=== PATIENT | male | born 1960 | race Caucasian/White ===

== ENCOUNTER 2021-06-23 14:13 | Outpatient (CLI) | payer BC ==
[2021-06-23 23:08] LABS: SARS-CoV-2 PCR by NAA Not Detected (NotDetected)
== END 2021-06-23 14:14 | disposition home or self-care (01) ==
LOC: CSHLAB 14:13
PROVIDERS: ATTEND Surgery
DX: Z01.812 Encounter for preprocedural laboratory examination (principal); Z20.822 Contact with and (suspected) exposure to COVID-19; C44.42 Squamous cell carcinoma of skin of scalp and neck
CPT/HCPCS: U0003; U0005

== ENCOUNTER 2021-06-25 05:49 | Day surgery (SDC) | payer BC ==
[2021-06-24 09:47] VITALS: BMI 27.6
[2021-06-25] MEDS ORDERED: Bupivacaine 0.25% HCL 30 ML VIAL ONE (06:37)
[2021-06-25] MEDS ORDERED: EPINEPHrine 1 MG/ML AMP ONE (06:37)
[2021-06-25] MEDS ORDERED: Lidocaine 1% MPF 2 ML VIAL ONE (06:54)
[2021-06-25] MEDS ORDERED: Lidocaine 1% PF 5 ML VIAL ONE (07:15)
[2021-06-25] MEDS ORDERED: Fentanyl 100 MCG/2 ML VIAL ONE (07:15)
[2021-06-25] MEDS ORDERED: PROPOFOL 60 ML ONE (07:15)
[2021-06-25] MEDS ORDERED: Midazolam HCl 2 mg/2 ml Vial ONE (07:15)
[2021-06-25] MEDS ORDERED: ceFAZolin 2 GM/Dextrose 50 ML IVPB ONE (07:20)
[2021-06-25] MEDS ORDERED: Ondansetron PF 4 MG/2 ML Vial ONE (07:56)
[2021-06-25] MEDS ORDERED: ePHEDrine Sulfate 50 MG/10 ML VIAL ONE (08:18)
[2021-06-25] MEDS ORDERED: Acetaminophen 325 MG TAB PO PRN (08:24)
[2021-06-25] MEDS ORDERED: HYDROcodone/Acetaminophen 5/325 mg Tablet PO PRN (08:24)
== END 2021-06-25 09:45 | disposition home or self-care (01) ==
LOC: CSHSDC 05:49
PROVIDERS: ATTEND Surgery
PROC: 05HM33Z Insertion of Infusion Device into Right Internal Jugular Vein, Percutaneous Approach (ICD-10-PCS; principal; 2021-06-25)
DX: C10.9 Malignant neoplasm of oropharynx, unspecified (principal); Z79.899 Other long term (current) drug therapy; G40.909 Epilepsy, unspecified, not intractable, without status epilepticus; Z87.891 Personal history of nicotine dependence
CPT/HCPCS: C1788; J0171; J0690; J1642; J2250; J2405; J2704; J3010; S0020

== ENCOUNTER 2024-04-10 11:39 | Emergency (ER) | payer BC ==
[~2024-04-10 11:39] MED LIST: Iopamidol 300 61% 100 ML VIAL FS ONE
[2024-04-10] MEDS ORDERED: Morphine 4 MG/ML VIAL ONE (12:29)
[2024-04-10] MEDS ORDERED: Ondansetron PF 4 MG/2 ML Vial ONE (12:30)
[2024-04-10 12:51] LABS: #Basophils 0.01 10x3/uL (0.0-0.2); #Eosinophils 0.16 10x3/uL (0.0-0.5); #Monocytes 0.74 10x3/uL (0.0-1.1); #Neutrophils 4.76 10x3/uL (1.5-8.4); %Basophils 0.2 % (0.0-2.0); %Eosinophils 2.5 % (0.0-6.0); %Lymphocytes 12.2 % (18.0-47.0); %Monocytes 11.4 % (0.0-10.0); %Neutrophils 73.2 % (40.0-75.0); Hematocrit 37.8 % (38.8-50.0); Hemoglobin 12.5 g/dL (13.5-17.5); Mean Corpuscular HGB CONC 33.1 g/dL (32.0-36.0); Mean Corpuscular Hemoglobin 33.2 pg (27.0-33.0); Mean Corpuscular Volume 100.3 fL (81.2-95.1); Mean Platelet Volume 9.1 fL (7.4-10.4); Platelet Count 246 10x3/uL (150-450); RBC Distribution Width 13.8 % (11.5-14.5); Red Blood Cell (RBC) Count 3.77 10x6/uL (4.32-5.72); White Blood Cell (WBC) Count 6.5 10x3/uL (3.5-10.5)
[2024-04-10 13:02] LABS: ALT (SGPT) 25 U/L (8-55); AST (SGOT) 27 U/L (5-34); Albumin 3.2 g/dL (3.4-4.8); Alkaline Phosphatase 55 U/L (40-110); Anion Gap 11 mmol/L (10-20); BUN (Urea Nitrogen) 27 mg/dL (8.4-25.7); Bilirubin, Total 0.2 mg/dL (0.2-1.2); Calc. Creatinine Clearance 0 mL/min (70-130); Calcium 9.3 mg/dL (7.8-10.44); Carbon Dioxide 29 mmol/L (23-31); Chloride 102 mmol/L (98-107); Estimated GFR 75; Globulin 2.7 g/dL (2.4-3.5); Glucose 113 mg/dL (80-115); Potassium 4.3 mmol/L (3.5-5.1); Protein, Total 5.9 g/dL (5.8-8.1); Sodium 138 mmol/L (136-145)
[2024-04-10] MEDS ORDERED: Piperacillin/Tazobactam 3.375 GM VIAL ONE (14:41)
[2024-04-10] MEDS ORDERED: Vancomycin 1.5 GRAM/300 ML BAG 1.5 GM in Premix 1 BAG IVPB SCH (15:45)
[2024-04-10] MEDS ORDERED: diphenhydrAMINE 50 MG/ML VIAL ONE (16:10)
[2024-04-10] MEDS ORDERED: Ketorolac Tromethamine 30 MG (1 mL) VIAL ONE (18:12)
[2024-04-10] MEDS ORDERED: Clindamycin/D5W 900 MG in Premix 1 BAG IVPB SCH (18:30)
== END 2024-04-10 23:09 | disposition short-term general hospital (02) ==
LOC: CSHERS 11:39
DX: M86.172 Other acute osteomyelitis, left ankle and foot (principal); Z87.891 Personal history of nicotine dependence
CPT/HCPCS: 36415; 80053; 83605; 85025; 87040; 96374; 96375; J1200; J1885; J2272; J2405; J2543; J3370; J3490; Q9967